=== PATIENT | male | born 1970 | race Hispanic/Latino ===

== ENCOUNTER → 2022-01-07 | Outpatient (CLI) | payer BC | LOC: RAD 09:22 | PROVIDERS: ATTEND Family Medicine | DX: L03.116 Cellulitis of left lower limb (principal); M79.605 Pain in left leg | CPT/HCPCS: 93971 ==

== ENCOUNTER 2024-08-20 16:01 | Inpatient (IN) | payer BC ==
[~2024-08-20] VITALS: Ht 182.9 cm; Wt 136.1 kg
[2024-08-20 16:14] VITALS: PULSE 79; RESP 16; TEMP 99.7
[2024-08-20 16:46] LABS: BASOPHILS # (AUTO) 0.1 (0.0-0.1); BASOPHILS % 0.5 % (0.0-1.0); EOSINOPHILS # (AUTO) 0.4 (0.0-0.4); EOSINOPHILS % 2.9 % (0.0-6.0); HEMATOCRIT 46.7 % (38.2-49.6); HEMOGLOBIN 15.4 g/dL (14.0-18.0); LYMPHOCYTES # (AUTO) 2.8 (1.0-3.2); LYMPHOCYTES % 20.1 % (18.0-39.1); MEAN CORPUSCULAR VOLUME 96.9 fL (81-99); PLATELET COUNT 286 x10e3/uL (140-360); RED BLOOD COUNT 4.82 x10e6/uL (4.3-5.7); RED CELL DISTRIBUTION WIDTH 12.4 % (11.7-14.4); WHITE BLOOD COUNT 13.66 x10e3/uL (4.8-10.8)
[2024-08-20] MEDS: SODIUM CHLORIDE 0.9% 1000ML 1,000 ML IV STA (16:51)
[2024-08-20] MEDS: CEFEPIME 2 GM in SODIUM CHLORIDE 0.9% 100 ML IV SCH (16:51)
[2024-08-20 17:02] LABS: INR 0.98; PROTHROMBIN TIME 13.6 seconds (11.9-14.5)
[2024-08-20 17:03] LABS: PARTIAL THROMBOPLASTIN TIME 28.1 seconds (23.8-35.5)
[2024-08-20 17:10] LABS: ALBUMIN 3.5 g/dL (3.5-5.0); ALBUMIN/GLOBULIN RATIO 0.8 (0.8-2.0); BILIRUBIN,TOTAL 0.3 mg/dL (0.2-1.2); CALCIUM 9.3 mg/dL (8.4-10.2); CREATININE, SERUM 0.81 mg/dL (0.72-1.25); MAGNESIUM 2.1 MG/DL (1.3-2.1); TOTAL PROTEIN 8.1 g/dL (6.5-8.1)
[2024-08-20 17:17] LABS: TROPONIN I 0.005 ng/mL (0-0.300)
[2024-08-20] MEDS: VANCOMYCIN 1.25GM/250 ML (PEG) 250 ML IV SCH (17:43)
[2024-08-20] MEDS: SODIUM CHLORIDE 0.9% 1000ML 1,000 ML IV SCH (18:39)
[2024-08-20] MEDS: HYDROCODONE/APAP 7.5MG-325MG 1 EA TAB PO PRN (18:45)
[2024-08-20 20:43] VITALS: BP 121/84; PULSE 78; RESP 16; TEMP 98.9; O2SAT 100
[2024-08-20 21:27] VITALS: BP 113/75; PULSE 84; RESP 19; TEMP 98.5; O2SAT 96
[2024-08-20 22:16] VITALS: BP 113/75; PULSE 84; RESP 19; TEMP 98.5; O2SAT 96
[2024-08-21] VITALS (7 sets, daily range): BP systolic 111–121; BP diastolic 61–74; PULSE 67–80; RESP 18–21; TEMP 97.7–98.3; O2SAT 96–99
[2024-08-21 05:49] LABS: BASOPHILS # (AUTO) 0.1 (0.0-0.1); BASOPHILS % 0.5 % (0.0-1.0); EOSINOPHILS # (AUTO) 0.4 (0.0-0.4); EOSINOPHILS % 3.6 % (0.0-6.0); HEMATOCRIT 39.4 % (38.2-49.6); HEMOGLOBIN 12.9 g/dL (14.0-18.0); LYMPHOCYTES # (AUTO) 2.1 (1.0-3.2); LYMPHOCYTES % 20.4 % (18.0-39.1); MEAN CORPUSCULAR HEMOGLOBIN 32.5 pg (28-32); MEAN CORPUSCULAR HGB CONC 32.7 g/dL (31-35); MEAN CORPUSCULAR VOLUME 99.2 fL (81-99); MONOCYTES # (AUTO) 0.7 (0.2-0.8); MONOCYTES % 7.2 % (4.4-11.3); NEUTROPHILS # (AUTO) 6.8 (2.1-6.9); NEUTROPHILS % 66.2 % (38.7-80.0); PLATELET COUNT 256 x10e3/uL (140-360); RED BLOOD COUNT 3.97 x10e6/uL (4.3-5.7); RED CELL DISTRIBUTION WIDTH 12.6 % (11.7-14.4); WHITE BLOOD COUNT 10.19 x10e3/uL (4.8-10.8)
[2024-08-21 06:18] LABS: ALBUMIN 2.9 g/dL (3.5-5.0); ALBUMIN/GLOBULIN RATIO 0.7 (0.8-2.0); BILIRUBIN,TOTAL 0.4 mg/dL (0.2-1.2); CALCIUM 8.8 mg/dL (8.4-10.2); CREATININE, SERUM 0.81 mg/dL (0.72-1.25); TOTAL PROTEIN 6.8 g/dL (6.5-8.1)
[2024-08-21] MEDS: Morphine 2mg Syringe 2 MG/ML SYR IV ONE (12:57)
[2024-08-21] MEDS ORDERED: ENOXAPARIN 30 MG/0.3 ML SYR SC SCH (17:00)
[2024-08-21] MEDS: ENOXAPARIN SOD INJ 40 MG/0.4 ML SYR SC SCH (17:15)
[2024-08-21] MEDS ORDERED: IOPAMIDOL 370 MG/ML 100 ML INFUS..BTL INJ ONE (18:14)
[2024-08-21] MEDS: Morphine 2mg Syringe 2 MG/ML SYR IV PRN (21:28)
[2024-08-22] VITALS (7 sets, daily range): BP systolic 106–130; BP diastolic 63–77; PULSE 58–86; RESP 18–20; TEMP 97.3–98.3; O2SAT 94–98
[2024-08-22] MEDS: DAPTOMYCIN IV SCH (18:04)
[2024-08-22] MEDS: SODIUM CHLORIDE 0.9% IV SCH (18:04)
[2024-08-22] MEDS: ONDANSETRON HCL INJ 2MG/ML 2ML 2 MG/ML VIAL IV PRN (23:57)
[2024-08-23] VITALS (7 sets, daily range): BP systolic 105–135; BP diastolic 70–85; PULSE 72–83; RESP 17–20; TEMP 97.5–98.9; O2SAT 94–99
[2024-08-23] MEDS: IBUPROFEN 600 MG TAB PO PRN (08:15)
[2024-08-23] MEDS: BUSPIRONE HCL 5 MG TAB PO SCH (16:49)
[2024-08-23] MEDS ORDERED: POLYETHYLENE GLYCOL 3350 17 GM PACK PO PRN (22:15)
[2024-08-24] VITALS: BP 119/84; PULSE 72; RESP 20; TEMP 98.2; O2SAT 96
[2024-08-24 04:00] VITALS: BP 107/65; PULSE 69; RESP 18; TEMP 98.2; O2SAT 98
[2024-08-24 05:50] LABS: BASOPHILS # (AUTO) 0.1 (0.0-0.1); BASOPHILS % 0.4 % (0.0-1.0); EOSINOPHILS # (AUTO) 0.3 (0.0-0.4); EOSINOPHILS % 2.2 % (0.0-6.0); HEMATOCRIT 38.3 % (38.2-49.6); HEMOGLOBIN 12.7 g/dL (14.0-18.0); LYMPHOCYTES # (AUTO) 2.1 (1.0-3.2); LYMPHOCYTES % 16.8 % (18.0-39.1); MEAN CORPUSCULAR HEMOGLOBIN 32.7 pg (28-32); MEAN CORPUSCULAR HGB CONC 33.2 g/dL (31-35); MEAN CORPUSCULAR VOLUME 98.7 fL (81-99); MONOCYTES # (AUTO) 0.8 (0.2-0.8); MONOCYTES % 6.5 % (4.4-11.3); NEUTROPHILS # (AUTO) 9.2 (2.1-6.9); NEUTROPHILS % 73.5 % (38.7-80.0); PLATELET COUNT 254 x10e3/uL (140-360); RED BLOOD COUNT 3.88 x10e6/uL (4.3-5.7); RED CELL DISTRIBUTION WIDTH 12.4 % (11.7-14.4); WHITE BLOOD COUNT 12.47 x10e3/uL (4.8-10.8)
[2024-08-24 06:28] LABS: CALCIUM 8.8 mg/dL (8.4-10.2); CHOL/HDL RATIO 4.5 (3.9-4.7); CREATININE, SERUM 0.79 mg/dL (0.72-1.25); PHOSPHORUS 3.3 MG/DL (2.3-4.7)
[2024-08-24 06:53] LABS: FREE T4 (FREE THYROXINE) 0.85 ng/dL (0.8-1.8); THYROID STIMULATING HORMONE 1.071 uIU/mL (0.350-4.940)
[2024-08-24 08:00] VITALS: BP 107/77; PULSE 66; RESP 19; TEMP 97.6; O2SAT 99
[2024-08-24] MEDS: DOCUSATE SODIUM 100 MG CAP PO SCH (09:00)
[2024-08-24 12:00] VITALS: BP 113/86; PULSE 68; RESP 21; TEMP 98.2; O2SAT 98
[2024-08-24] MEDS ORDERED: ZYVOX600 MG PO (14:02)
[2024-08-24] MEDS ORDERED: LINEZOLID 600 MG TAB PO SCH (17:00)
== END 2024-08-24 14:25 | disposition home or self-care (01) | DRG 603 ==
LOC: ER 16:26 → ERHOLD 17:33 → MED/SURG3 18:26
PROVIDERS: ADMIT Internal Medicine; ATTEND Internal Medicine
DX: L03.116 Cellulitis of left lower limb (principal); Z68.41 Body mass index [BMI] 40.0-44.9, adult; S80.822A Blister (nonthermal), left lower leg, initial encounter; I87.8 Other specified disorders of veins; R23.8 Other skin changes; E66.01 Morbid (severe) obesity due to excess calories; F41.1 Generalized anxiety disorder; R73.03 Prediabetes; Z87.891 Personal history of nicotine dependence; Z88.0 Allergy status to penicillin; X58.XXXA Exposure to other specified factors, initial encounter
CPT/HCPCS: 29581; 36415; 73701; 80048; 80053; 80061; 80202; 82550; 83036; 83735; 83880; 84100; 84439; 84443; 84484; 85025; 85610; 85730; 86140; 87040; 87071; 87075; 87205; 93971; 99252; 99284; J0692; J1650; J2270; J2405; J7030; J7050; Q9967

== ENCOUNTER → 2024-08-31 | Outpatient (REF) | payer BC ==
[~2024-08-31] MED LIST: ZYVOX600 MG PO
== END ==
LOC: WCC 14:36
PROVIDERS: ATTEND Internal Medicine Infectious Disease
DX: L03.116 Cellulitis of left lower limb (principal); R60.0 Localized edema; S80.822D Blister (nonthermal), left lower leg, subsequent encounter

== ENCOUNTER → 2024-09-04 | Outpatient (REF) | payer BC | LOC: WCC 15:15 | PROVIDERS: ATTEND Internal Medicine Infectious Disease | DX: S80.822D Blister (nonthermal), left lower leg, subsequent encounter (principal); R60.0 Localized edema ==

== ENCOUNTER → 2024-09-07 | Outpatient (REF) | payer BC | LOC: WCC 13:25 | PROVIDERS: ATTEND Internal Medicine Infectious Disease | DX: L03.116 Cellulitis of left lower limb (principal); R60.0 Localized edema; S80.822D Blister (nonthermal), left lower leg, subsequent encounter ==

== ENCOUNTER → 2024-09-14 | Outpatient (REF) | payer BC | LOC: WCC 14:27 | PROVIDERS: ATTEND Internal Medicine Infectious Disease | DX: L03.116 Cellulitis of left lower limb (principal); R60.0 Localized edema ==